=== PATIENT | female | born 1990 | race Two or more races ===

== ENCOUNTER 2019-05-15 16:25 | Inpatient (IN) ==
[2019-05-15] MEDS ORDERED: BUTORPHANOL 2 MG/ML VIAL IV PRN (17:43)
[2019-05-15] MEDS ORDERED: MEPERIDINE 50 MG/1 ML VIAL IV PRN (17:43)
[2019-05-15] MEDS ORDERED: ONDANSETRON 4 MG/2 ML VIAL IV PRN (17:43)
[2019-05-15] MEDS ORDERED: AMPICILLIN INJ 2,000 MG in SODIUM CHLORIDE 0.9% 100 ML IV ONE (17:49)
[2019-05-15] MEDS ORDERED: OXYTOCIN/LR 20 UNIT/1,000 ML BAG IV SCH (18:00)
[2019-05-15 18:15] LABS: Basophils % 0.2 % (0.0-0.8); Eosinophils # 0.1 10*3/uL (0.0-0.87); Hematocrit 34.9 VOL% (35.7-47.0); Hemoglobin 11.9 GM/DL (12.0-16.0); Immature Granulocytes % 0.2 %; Immature Granulocytes Absolute 0.02 #; Lymphocytes # 2.6 10*3/uL (1.4-4.0); Lymphocytes % 28.9 % (21.3-54.2); Mean Corpuscular HGB Conc 34.1 GM/DL (32-36); Mean Corpuscular Volume 91.8 FL (87-102); Monocytes % 4.6 % (1.7-12.7); Neutrophils % 65.1 % (38.7-73.9); Platelet Count 173 T/CUMM (130-400); Red Cell Distribution Width 12.7 % (9.3-17.3); White Blood Count 8.9 T/CUMM (4-12)
[2019-05-15] MEDS ORDERED: FAMOTIDINE 20 MG/2 ML VIAL IV ONE (18:22)
[2019-05-15] MEDS ORDERED: LACTATED RINGERS 1,000 ML IV ONE (18:22)
[2019-05-15] MEDS ORDERED: NALOXONE 0.4 MG/ML VIAL IV PRN (18:22)
[2019-05-15] MEDS ORDERED: CITRIC ACID/SODIUM CITRATE 30 ML UDCUP PO ONE (18:22)
[2019-05-15] MEDS ORDERED: hydrOXYzine HCL 25 MG/1 ML VIAL IM PRN (18:22)
[2019-05-15] MEDS ORDERED: ePHEDrine 50 MG/ML AMP IV PRN (18:22)
[2019-05-15] MEDS ORDERED: diphenhydrAMINE 50 MG/1 ML VIAL IV PRN ×2 (18:22)
[2019-05-15] MEDS ORDERED: fentaNYL 2 MCG/ROPIV 0.2% EPID 100 ML EPIDURAL SCH (18:30)
[2019-05-15] MEDS: LACTATED RINGERS 1,000 ML IV SCH ×2 (19:02→21:47)
[2019-05-15 19:07] LABS: Barbiturates Screen,Urine Negative (Negative); Benzodiazepines Screen,Urine Negative (Negative); Cannabinoid Screen,Urine Negative (Negative); Opiate Screen,Urine Negative (Negative); Phencyclidine Screen,Urine Negative (Negative)
[2019-05-15] MEDS: AMPICILLIN INJ 1,000 MG in SODIUM CHLORIDE 0.9% 100 ML IV SCH (21:58)
[2019-05-16] MEDS: AMPICILLIN INJ 1,000 MG in SODIUM CHLORIDE 0.9% 100 ML IV SCH (01:32)
[2019-05-16] MEDS ORDERED: TRANEXAMIC ACID 1,000 MG/10 ML VIAL ONE (03:31)
[2019-05-16] MEDS ORDERED: miSOPROStoL 200 MCG TABLET ONE (03:31)
[2019-05-16] MEDS ORDERED: OXYTOCIN/LR 20 UNIT/1,000 ML BAG IV ONE ×2 (03:31→04:12)
[2019-05-16] MEDS ORDERED: METHYLERGONOVINE 0.2 MG/1 ML AMP ONE (03:32)
[2019-05-16] MEDS ORDERED: CARBOPROST TROMETHAMINE 250 MCG/ML AMP IM ONE (03:32)
[2019-05-16 04:10] LABS: Cord Arterial Blood HCO3 22.8 MMOL/L
[2019-05-16 04:11] LABS: Cord Venous Blood HCO3 24.4 MMOL/L; Cord Venous Blood PCO2 40.9 MMHG
[2019-05-16] MEDS ORDERED: HYDROCORTISONE 2.5% RECTAL CREAM 30 GM TUBE TOP PRN (04:12)
[2019-05-16] MEDS ORDERED: ACETAMINOPHEN 325 MG TABLET PO PRN (04:12)
[2019-05-16] MEDS ORDERED: LANOLIN 50% CREAM 0.3 OZ TUBE TOP PRN (04:12)
[2019-05-16] MEDS ORDERED: MEASLES/MUMPS/RUBELLA VACCINE 0.5 ML VIAL SUBCUT ONE (04:12)
[2019-05-16] MEDS ORDERED: RHO(D) IMMUNE GLOBULIN 300 MCG SYRINGE IM ONE (04:12)
[2019-05-16] MEDS ORDERED: oxyCODONE/ACETAMINOPHEN 5-325 MG TABLET PO PRN ×2 (04:12)
[2019-05-16] MEDS ORDERED: BISACODYL 10 MG SUPP RECTAL PRN (04:12)
[2019-05-16] MEDS ORDERED: DIPH/TET/ACEL PERT BOOSTER VACCINE 0.5 ML VIAL IM ONE (04:12)
[2019-05-16] MEDS ORDERED: BENZOCAINE 20%/MENTHOL 0.5% SPRAY 56 GM CAN TOP PRN (04:12)
[2019-05-16] MEDS ORDERED: ONDANSETRON 4 MG/2 ML VIAL IV PRN (04:12)
[2019-05-16] MEDS ORDERED: WITCH HAZEL PADS 100/JAR TOP PRN (04:12)
[2019-05-16] MEDS: IBUPROFEN 800 MG TABLET PO PRN ×3 (07:33→20:03)
[2019-05-16] MEDS: DOCUSATE SODIUM 100 MG CAPSULE PO SCH (09:17)
[2019-05-16 09:32] VITALS: BP 107/66
[2019-05-17] MEDS: DOCUSATE SODIUM 100 MG CAPSULE PO SCH ×2 (03:02→16:02)
[2019-05-17 05:24] LABS: Basophils % 0.4 % (0.0-0.8); Eosinophils # 0.2 10*3/uL (0.0-0.87); Eosinophils % 1.8 % (0.00-10.9); Hematocrit 28.9 VOL% (35.7-47.0); Hemoglobin 9.3 GM/DL (12.0-16.0); Immature Granulocytes % 0.4 %; Immature Granulocytes Absolute 0.03 #; Lymphocytes # 3.4 10*3/uL (1.4-4.0); Lymphocytes % 39.4 % (21.3-54.2); Mean Corpuscular HGB Conc 32.2 GM/DL (32-36); Mean Corpuscular Volume 94.1 FL (87-102); Mean Platelet Volume 10.3 FL (9.6-12.0); Monocytes % 5.5 % (1.7-12.7); Neutrophils % 52.5 % (38.7-73.9); Platelet Count 128 T/CUMM (130-400); Red Blood Count 3.07 MC/CUMM (3.8-5.5); Red Cell Distribution Width 12.7 % (9.3-17.3); White Blood Count 8.5 T/CUMM (4-12)
[2019-05-17] MEDS: IBUPROFEN 800 MG TABLET PO PRN ×2 (08:20→16:03)
== END 2019-05-17 16:30 | disposition home or self-care (01) | DRG 560 ==
LOC: N.LDOUT 16:25 → N.LD 16:28
PROVIDERS: ADMIT Midwife; ATTEND Obstetrics & Gynecology